=== PATIENT | male | born 1970 | race Caucasian/White ===

== ENCOUNTER 2021-09-06 16:26 | Observation (INO) ==
[2021-09-06 17:13] LABS: Appearance Urine Clear (Clear); Bilirubin Urine Negative (Negative); Blood Urine Negative (Negative); Color Urine Yellow; Glucose Urine UA Negative (Negative); Ketones Urine Trace (Negative); Leukocyte Esterase Urine Negative (Negative); Nitrite Urine Negative (Negative); Protein Urine Negative (Negative); Specific Gravity Urine 1.005 (1.000-1.030); Urobilinogen Urine Negative (Negative); pH Urine 5.5 (4.5-7.5)
[2021-09-06 17:17] LABS: Basophils # (auto) 0.04 K/uL (0-0.2); Basophils % (auto) 0.3 %; Eosinophils # (auto) 0.22 K/uL (0-0.5); Eosinophils % (auto) 1.6 %; Hemoglobin 15.2 g/dL (14.0-18.0); Immature Granulocytes # (auto) 0.03 K/uL (0.00-0.02); Immature Granulocytes % (auto) 0.2 %; Lymphocytes # (auto) 2.41 K/uL (1.2-3.4); Lymphocytes % (auto) 17.5 %; Mean Corpuscular Hemoglobin 32.5 pg (25-34); Mean Corpuscular Hgb Conc 34.5 g/dL (32-36); Mean Platelet Volume 10.3 fL (7.4-10.4); Monocytes # (auto) 1.37 K/uL (0.11-0.59); Monocytes % (auto) 9.9 %; Neutrophils # (auto) 9.74 K/uL (1.4-6.5); Neutrophils % (auto) 70.5 %; Platelet Count 254 K/uL (130-400); RDW Coefficient of Variation 13.2 % (11.5-14.5); RDW Standard Deviation 45.4 fL (36.4-46.3); Red Blood Count 4.68 M/uL (4.7-6.1); White Blood Count 13.81 K/uL (4.8-10.8)
[2021-09-06 17:32] LABS: Potassium 3.6 mmol/L (3.5-5.1)
[2021-09-06 17:33] LABS: Albumin Level 3.9 gm/dl (3.4-5.0); Calcium 10.1 mg/dl (8.5-10.1); Creatinine Clr Calc Pharmacy 103.2 ml/min; Est GFR (African American) 108.5 ml/min; Est GFR (Non-African American) 93.6 ml/min
[2021-09-06 17:35] LABS: Albumin Globulin Ratio 0.9 (0.9-2); Bilirubin,Total 0.4 mg/dl (0.2-1); Globulin 4.2 gm/dl (2.5-4.0); Total Protein 8.1 gm/dl (6.4-8.2)
[2021-09-06] MEDS ORDERED: OPTIRAY 320 100ml IV ONE (19:07)
--- NOTE | 2021-09-06 19:31 | CT Scan Report ---
ABDOMEN AND PELVIS CT WITH IV CONTRAST CT DOSE: 360.25 mGy.cm HISTORY: Left-sided abdominal pain. diverticulitis TECHNIQUE: Multiaxial CT images of the abdomen and pelvis were performed following the use of intrave nous contrast. A dose lowering technique was utilized adhering to the principles of ALARA. COMPARISON STUDY: None. FINDINGS: Focal bowel wall thickening within the mid descending colon with an inflamed diverticulum a nd adjacent pericolonic fat stranding/edema. This likely represents an acute diverticulitis. No perfo ration or abscess identified at this time. Trace pelvic free fluid. This is likely reactive. Moderate well-formed stool within the colon. Normal appendix. The bladder is not well-distended but appears u nremarkable. Borderline dilated gas-filled loops of large and small bowel seen throughout the abdomen . This favors a mild reactive ileus. No evidence for a bowel obstruction. A 9 mm hypodense lesion wit hin the right hepatic dome is technically too small to characterize but favors a cyst. There is also a heterogeneous enhancing 2.5 cm lesion within the periphery the right hepatic lobe on image 99 and a 1 cm heterogeneous enhancing lesion within the right hepatic lobe on image 70. These are indetermina te but favor hemangiomas. The gallbladder, adrenal glands, pancreas, and kidneys enhance normally. No hydronephrosis. Mild bilateral perinephric edema which is likely chronic. The main portal vein is pa tent. 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 Both lumens opacified. This is to the age indeterminate but likely chronic. Subc entimeter retroperitoneal lymph nodes do not meet CT criteria for pathologic involvement. Tiny fat-co ntaining umbilical hernia. A 1.6 cm hypodense lesion within the splenic dome. This favors a small cys t. IMPRESSION: 1. Acute diverticulitis involving the mid descending colon. No perforation or abscess at this time. F ollow-up colonoscopy should be performed once the patient's diverticulitis has resolved to exclude th e less likely possibility of an underlying colonic lesion. 2. There are 2 heterogeneous enhancing lesions within the right hepatic lobe as described above. Thes e are incompletely characterized on this single phase study but favor hemangiomas. These can be laureen cterized with a nonemergent dedicated liver MRI if clinically warranted. 3. 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 Both lumens are opacified. This is age indeterminate but is likely chronic. ACT 112: Negative or not required by law. Electronically signed by: Brice Myers M.D. 09/06/2021 7:30 PM
--- NOTE | 2021-09-06 19:41 | Emergency Department Note ---
History of Present Illness General Chief complaint: Abdominal Pain Stated complaint: DIVERTICULITIS, ABDOMINAL PAIN Time Seen by Provider: 09/06/21 19:29 Source: patient History of Present Illness Provider complaint: Left lower quadrant abdominal pain Onset (ago): day(s) 2 Location: abdomen and left Radiation: non-radiation Pain Consistency: + constant Maximum Pain Intensity: 9 Quality: + dull Relieved By: + none Associated symptoms: no chest pain, no cough, no fever/chills, no na usea/vomiting or no shortness of breath This is a 50-year-old male who presents with abdominal pain starting 2 days ago. He describes it as initially dull but seem to get worse today. He states is in the left lower quadrant. It does not radiate. No modifying factors. He has had some nausea but no vomiting associated with it. He denies any fever, cough, chest pain, shortness of breath, urinary symptoms or diarrhea. He states that he just finished a course of Augmentin for the past 10 days for sinus infection. He does have a prior history of diverticulitis and feels that this is similar. Home Medications Medication Instructions Recorded Confirmed Type amlodipine 5 mg tablet 5 mg PO DAILY 09/06/21 09/06/21 History Allergies Allergy/AdvReac Type Severity Reaction Status Date / Time No Known Allergies Allergy Verified 09/06/21 20:38 Past Med/Surg History Medical History Diverticulitis Social History Smoking Status: Current some day smoker Feels Safe at Home: Yes Review of Systems See HPI for pertinent positives & negatives. and A total of 10 systems reviewed and were otherwise negative Physical Exam Vital Signs Vital Signs - 24 hr 09/06/21 16:39 09/06/21 20:09 Temperature 36.8 C Temperature Source Temporal Artery Scan Pulse Rate 98 H Pulse Rate [Finger] 83 Respiratory Rate 18 20 Respiratory Effort / Characteristics Non-Labored Spontaneous Respiratory Depth Normal Blood Pressure 185/120 H Blood Pressure [Right Arm] 162/114 H Blood Pressure Mean 141 Blood Pressure Mean [Right Arm] 130 Pulse Oximetry 99 98 Oxygen Delivery Method Room Air Room Air Sepsis Recent Fever Within 48 Hours No Sepsis New/Unexplained Change in Mental Status No Sepsis Action Taken by Nursing No Action Required Constitutional: Vital signs reviewed. Eyes: Pupils are equal round. Conjunctiva are noninjected. ENT: Pharynx is clear without erythema or exudate. Mucous membranes are moist. Neck supple without meningeal signs. Respiratory: Clear to auscultation bilaterally. Breath sounds are equal bilaterally. Cardiovascular: Regular rate and rhythm. No rubs or gallops. GI: Soft, nondistended with left lower quadrant tenderness. No guarding. Bowel sounds are present. Musculoskeletal: No peripheral edema. No lower extremity tenderness. Integumentary: No cyanosis. or jaundice. Neurological: The patient is awake and alert. No focal deficits. Psychiatric: Normal affect. Not anxious appearing. Course Administered Medications Discontinued Medications Piperacillin Sod/Tazobactam Sod (Zosyn) 4.5 gm in 120 mls @ 240 mls/hr IV NOW ONE Stop: 09/06/21 20:22 Last Infusion: 09/06/21 20:39 Dose: 0 mls/hr Documented by: [id number] Admin: 09/06/21 20:05 Dose: 240 mls/hr Documented by: [id number] Sodium Chloride (Nss 1000ml) 1,000 mls @ 999 mls/hr IV .Q1H1M ONE Stop: 09/06/21 20:53 Last Admin: 09/06/21 20:01 Dose: 999 mls/hr Documented by: [id number] Ioversol (Optiray 320 100ml) 95 ml IV ONCE ONE Stop: 09/06/21 19:08 Last Admin: 09/06/21 19:07 Dose: 95 ml Documented by: [id number] Morphine Sulfate (Morphine Sulfate 4 Mg/Ml 1 Ml Carp\Vial) 4 mg IV NOW STA Stop: 09/06/21 19:54 Last Admin: 09/06/21 20:06 Dose: 4 mg Documented by: [id number] Ondansetron HCl (Ondansetron Inj 2 Mg/Ml 2 Ml Vial) 4 mg IV NOW STA Stop: 09/06/21 19:54 Last Admin: 09/06/21 20:01 Dose: 4 mg Documented by: [id number] Medical Decision Making Differential Diagnosis Diverticulitis, perforation, abscess, kidney stone, strain Medical Records Attestation: I reviewed the patient's medical records. I did perform a limited focused review of portions of the patient's old chart on the electronic medical record. The patient has had no recent pertinent visits to this hospital. Home Medications Current Medication List: was personally reviewed by me Laboratory Data Attestation: I reviewed the patient's lab results. Result diagrams: 09/06/21 16:52 09/06/21 16:52 Lab Results 09/06/21 09/06/21 09/06/21 Range/Units 16:52 16:52 16:53 WBC 13.81 H (4.8-10.8) K/uL RBC 4.68 L (4.7-6.1) M/uL Hgb 15.2 (14.0-18.0) g/dL Hct 44.0 (42-52) % MCV 94.0 (80-100) fL MCH 32.5 (25-34) pg MCHC 34.5 (32-36) g/dL RDW Std Deviation 45.4 (36.4-46.3) fL RDW Coeff of Snoal 13.2 (11.5-14.5) % Plt Count 254 (130-400) K/uL MPV 10.3 (7.4-10.4) fL Immature Gran % (Auto) 0.2 % Neut % (Auto) 70.5 % Lymph % (Auto) 17.5 % [place] % (Auto) 9.9 % Eos % (Auto) 1.6 % Baso % (Auto) 0.3 % Neut # (Auto) 9.74 H (1.4-6.5) K/uL Lymph # (Auto) 2.41 (1.2-3.4) K/uL [place] # (Auto) 1.37 H (0.11-0.59) K/uL Eos # (Auto) 0.22 (0-0.5) K/uL Baso # (Auto) 0.04 (0-0.2) K/uL Immature Gran # (Auto) 0.03 H (0.00-0.02) K/uL Sodium 141 (136-145) mmol/L Potassium 3.6 (3.5-5.1) mmol/L Chloride 106 (98-107) mmol/L Carbon Dioxide 27 (21-32) mmol/L Anion Gap 8.0 (3-11) BUN 10 (7-18) mg/dl Creatinine 0.95 (0.6-1.4) mg/dl Est Cr Clr Drug Dosing 103.2 ml/min Est GFR ( Amer) 108.5 ml/min Est GFR (Non-Af Amer) 93.6 ml/min BUN/Creatinine Ratio 10.0 (10-20) Glucose 95 (70-99) mg/dl Calcium 10.1 (8.5-10.1) mg/dl Total Bilirubin 0.4 (0.2-1) mg/dl AST 15 (15-37) U/L ALT 27 (12-78) U/L Alkaline Phosphatase 61 (45-117) U/L Total Protein 8.1 (6.4-8.2) gm/dl Albumin 3.9 (3.4-5.0) gm/dl Globulin 4.2 H (2.5-4.0) gm/dl Albumin/Globulin Ratio 0.9 (0.9-2) Lipase 95 (73-393) U/L Urine Color Yellow Urine Appearance Clear (Clear) Urine pH 5.5 (4.5-7.5) Ur Specific [place] 1.005 (1.000-1.030) Urine Protein Negative (Negative) Urine Glucose (UA) Negative (Negative) Urine Ketones Trace H (Negative) Urine Blood Negative (Negative) Urine Nitrite Negative (Negative) Urine Bilirubin Negative (Negative) Urine Urobilinogen Negative (Negative) Ur Leukocyte Esterase Negative (Negative) SARS-CoV-2, RNA, NAAT (NEGATIVE) 09/06/21 Range/Units 20:10 WBC (4.8-10.8) K/uL RBC (4.7-6.1) M/uL Hgb (14.0-18.0) g/dL Hct (42-52) % MCV (80-100) fL MCH (25-34) pg MCHC (32-36) g/dL RDW Std Deviation (36.4-46.3) fL RDW Coeff of Sonal (11.5-14.5) % Plt Count (130-400) K/uL MPV (7.4-10.4) fL Immature Gran % (Auto) % Neut % (Auto) % Lymph % (Auto) % [place] % (Auto) % Eos % (Auto) % Baso % (Auto) % Neut # (Auto) (1.4-6.5) K/uL Lymph # (Auto) (1.2-3.4) K/uL [place] # (Auto) (0.11-0.59) K/uL Eos # (Auto) (0-0.5) K/uL Baso # (Auto) (0-0.2) K/uL Immature Gran # (Auto) (0.00-0.02) K/uL Sodium (136-145) mmol/L Potassium (3.5-5.1) mmol/L Chloride (98-107) mmol/L Carbon Dioxide (21-32) mmol/L Anion Gap (3-11) BUN (7-18) mg/dl Creatinine (0.6-1.4) mg/dl Est Cr Clr Drug Dosing ml/min Est GFR ( Amer) ml/min Est GFR (Non-Af Amer) ml/min BUN/Creatinine Ratio (10-20) Glucose (70-99) mg/dl Calcium (8.5-10.1) mg/dl Total Bilirubin (0.2-1) mg/dl AST (15-37) U/L ALT (12-78) U/L Alkaline Phosphatase (45-117) U/L Total Protein (6.4-8.2) gm/dl Albumin (3.4-5.0) gm/dl Globulin (2.5-4.0) gm/dl Albumin/Globulin Ratio (0.9-2) Lipase (73-393) U/L Urine Color Urine Appearance (Clear) Urine pH (4.5-7.5) Ur Specific [place] (1.000-1.030) Urine Protein (Negative) Urine Glucose (UA) (Negative) Urine Ketones (Negative) Urine Blood (Negative) Urine Nitrite (Negative) Urine Bilirubin (Negative) Urine Urobilinogen (Negative) Ur Leukocyte Esterase (Negative) SARS-CoV-2, RNA, NAAT NEGATIVE (NEGATIVE) Imaging Data Radiologist's Impression: Abdomen/Pelvis CT 09/06/21 18:[address] WITH IV CONTRAST CT DOSE: 360.25 mGy.cm HISTORY: Left-sided abdominal pain. diverticulitis TECHNIQUE: Multiaxial CT images of the abdomen and pelvis were performed following the use of intravenous contrast. A dose lowering technique was utilized adhering to the principles of ALARA. COMPARISON STUDY: None. FINDINGS: Focal bowel wall thickening within the mid descending colon with an inflamed diverticulum and adjacent pericolonic fat stranding/edema. This likely represents an acute diverticulitis. No perforation or abscess identified at this time. Trace pelvic free fluid. This is likely reactive. Moderate well-formed stool within the colon. Normal appendix. The bladder is not well-distended but appears unremarkable. Borderline dilated gas-filled loops of large and small bowel seen throughout the abdomen. This favors a mild reactive ileus. No evidence for a bowel obstruction. A 9 mm hypodense lesion within the right hepatic dome is technically too small to characterize but favors a cyst. There is also a heterogeneous enhancing 2.5 cm lesion within the periphery the right hepatic lobe on image 99 and a 1 cm heterogeneous enhancing lesion within the right hepatic lobe on image 70. These are indeterminate but favor hemangiomas. The gallbladder, adrenal glands, pancreas, and kidneys enhance normally. No hydronephrosis. Mild bilateral perinephric edema which is likely chronic. The main portal vein is patent. 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 Both lumens opacified. This is to the age indeterminate but likely chronic. Subcentimeter retroperitoneal lymph nodes do not meet CT criteria for pathologic involvement. Tiny fat-containing umbilical hernia. A 1.6 cm hypodense lesion within the splenic dome. This favors a small cyst. IMPRESSION: 1. Acute diverticulitis involving the mid descending colon. No perforation or abscess at this time. Follow-up colonoscopy should be performed once the patient's diverticulitis has resolved to exclude the less likely possibility of an underlying colonic lesion. 2. There are 2 heterogeneous enhancing lesions within the right hepatic lobe as described above. These are incompletely characterized on this single phase study but favor hemangiomas. These can be characterized with a nonemergent dedicated liver MRI if clinically warranted. 3. 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 Both lumens are opacified. This is age indeterminate but is likely chronic. ACT 112: Negative or not required by law. Electronically signed by: Brice Myers M.D. 09/06/2021 7:30 PM MDM Narrative I did evaluate the patient as noted above. IV access was established. I did order a urine analysis. There is no evidence of infection or blood.I did order and review the patient's blood work as noted in the electronic medical record. His white count is elevated at 13.8. He is not anemic or thrombocytopenic. Electrolytes, LFTs and lipase are unremarkable. I did order a CT of the abdomen and pelvis. I did review the images myself as well as the radiology report as described above. He does appear to have diverticulitis involving the mid descending colon without perforation or abscess. There are 2 lesions in the liver which appear to be hemangiomas. There is also focal dissection of the proximal celiac artery with fusiform aneurysmal dilatation measuring 1.5 cm. This appears to be chronic. I did discuss the test results with patient. He states he knows about the hemangiomas. He has never heard about the dissection and aneurysm. The patient does not have any upper pain. His pain is localized to the left lower abdomen where his diverticulitis is located. I did recommend inpatient treatment given his outpatient failure with Augmentin. He was agreeable. I did order a Covid test. He was given normal saline, morphine and Zofran and Zosyn IV. I did discuss case with the hospitalist and case assembler. Vascular surgery can be consulted not emergently. Impression & Plan Diverticulitis, Aneurysm artery, celiac, Failure of outpatient treatment, Celiac artery dissection Discharge Plan Visit Data Chief Complaint: Abdominal Pain Stated Complaint: DIVERTICULITIS, ABDOMINAL PAIN ED Provider: Naseem Colindres Discharge Problem: Diverticulitis, Aneurysm artery, celiac, Failure of outpatient treatment, Celiac artery dissection Patient Disposition: Being Evaluated by Hospitalist Discharge Instructions Interventions: ED Discharge Assessment Last Done: 09/06/21 22:02 Forms Stand Alone Forms: My [employer] Prescriptions Prescriptions: No Action amlodipine 5 mg tablet 5 mg PO DAILY RF: 0 Referrals Referrals: PCP,NO [Primary Care Provider] -
[2021-09-06] MEDS ORDERED: PIPERACILL/TAZOBAC CONSULT ACTIVE PRN (19:53)
[2021-09-06] MEDS ORDERED: ONDANSETRON INJ 2 MG/ML 2 ML VIAL IV STA (19:53)
[2021-09-06] MEDS ORDERED: MoRPHine SULFATE 4 MG/ML 1 ML CARP\\VIAL IV STA (19:53)
[2021-09-06] MEDS ORDERED: PIPERACILLIN/TAZOBACTAM 4.5 GM/120 ML BAG IV ONE (19:53)
[2021-09-06] MEDS ORDERED: SODIUM CHLORIDE 0.9% 1000ML 1,000 ML IV ONE (19:53)
[2021-09-06] MEDS ORDERED: MoRPHine SULFATE 4 MG/ML 1 ML CARP\\VIAL IV PRN (22:28)
--- NOTE | 2021-09-06 23:16 | History and Physical Report ---
DATE OF ADMISSION: 09/06/2021. CHIEF COMPLAINT: Abdominal pain. HISTORY OF PRESENT ILLNESS: A 50-year-old male with past medical history significant for hypertension, presents with abdominal pain since last 2 to 3 days. It was mild initially, but as he was coming from the [place] area today after a couple of hours pain became severe, and he came to the ER. He is on Augmentin for sinus infection for the last 10 days. Today is the last dose. He has l history of diverticulitis a couple of times, in the last 3 years, last episode was in May. He had a colonoscopy last year and it was fine. Currently, no recent diarrhea or constipation, no blood in the stools, no nausea, no vomiting, no fevers, no headache, no blurred vision, no earache, no runny nose, no sore throat or cough. Appetite is okay. No difficulty swallowing. No chest pain, no shortness of breath, no rash, no swelling in the legs. ALLERGIES: No known drug allergies. PAST MEDICAL HISTORY: As mentioned above. PAST SURGICAL HISTORY: Hiatal hernia surgeries as a child. MEDICATIONS: Amlodipine 5 mg p.o. daily. FAMILY HISTORY: Father had cancer, kidney stones, hypertension. Mother has hypertension, hypothyroidism. SOCIAL HISTORY: Smokes close to 1 pack a day for last many years. Alcohol, drinks 2-3 drinks every day. Denies any drug use. REVIEW OF SYSTEMS: As per HPI. Rest of review of systems is negative. PHYSICAL EXAMINATION: GENERAL: The patient is of moderate build, not in acute distress. VITAL SIGNS: Temperature 36.8, pulse 83, respiratory rate 20, blood pressure 162/114, oxygen 93% on room air. HEENT: Pupils equal, round and reactive to light. Oral mucosa moist. NECK: No JVD, no neck masses. CARDIOVASCULAR: S1 and S2 heard. Regular rate and rhythm. No murmur, no gallop. RESPIRATORY: Normal AP diameter. No accessory muscle use. No wheezing, no crackles. ABDOMEN: Soft, bowel sounds present. Mild tenderness in the left lower quadrant. No guarding, no rigidity, no distention. CENTRAL NERVOUS SYSTEM: Cranial nerves II-XII are grossly intact, nonfocal. EXTREMITIES: No edema, no erythema. LABORATORY DATA: WBC 13.8, hemoglobin 15.2, hematocrit 44, platelets 254. Sodium 141, potassium 3.6, chloride 106, bicarb 27, BUN 10, creatinine 0.9, serum glucose 95, calcium 10.1, total bilirubin 0.4, AST 15, ALT 27, alkaline phosphatase 61, lipase 95. Urinalysis: Trace ketones. SARS-CoV-2 RNA negative. IMAGING DATA: CT of abdomen and pelvis acute diverticulitis involving the mid descending colon. No perforation or abscess at this time. Followup colonoscopy should be performed once the patient's diverticulitis resolved. It is less likely possibility of an underlying colonic lesion. Two heterogenous enhancing lesions in the right hepatic lobe as described above probabaly hemangiomas, focal dissection within the proximal celiac artery with fusiform aneurysmal dilatation measuring 1.4 cm. Both lumens were opacified, likely chronic. ASSESSMENT AND PLAN: This is a 50-year-old male who presents with recurrent diverticulitis. 1. Recurrent diverticulitis. This is third epsiode in last 3 last years, last was in the May. He just was on Augmentin for sinusitis, today was the last dose of 10-day course. Abdominal pain started 2-[address] scan showing diverticulitis .ER started on IV Zosyn, which will be continued. We will keep him n.p.o. except meds, IV fluids, IV antiemetics, IV pain medication p.r.n. Consult surgery in the a.m. 2. Tobacco abuse. Nicotine patch. 3. Hypertension. Continue home amlodipine. We will monitor blood pressure. 4. Alcoholism. The patient states he drinks 2-3 drinks every day, but denies any withdrawal symptoms from not taking it. We will watch for any withdrawal symptoms. We will place him on IV Ativan p.r.n. 5. 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 It seems chronic. Needs to follow up with vascular surgery. We will follow the lactic acid in the a.m. 6. Deep venous thrombosis prophylaxis. Lovenox. DISPOSITION: Closely monitor in the medical floor. Expect to discharge home and follow up with family doctor. Job ID: [id number] [facility]
[2021-09-06] MEDS: NICOTINE 21 MG/24 HR TDSY TD SCH (23:46)
[2021-09-06] MEDS: D5W AND NSS 1,000 ML IV SCH (23:47)
[2021-09-07] MEDS: PIPERACILLIN/TAZOBACTAM 3.375 GM in DEXTROSE 5% 100 ML IV SCH ×3 (00:08→17:01)
--- NOTE | 2021-09-07 05:25 | Surgery Consultation ---
Date of Consultation September 07, 2021 Assessment & Plan (1) Diverticulitis: Patient has been admitted by the hospital service we recommend proceeding as follows: Provide analgesics Provide antiemetics Implement bowel rest Continue antibiotics in the form of Zosyn Provide hydration with intravenous fluids I discussed with the patient the above treatment plan. Told him it would be preferable to treat him in a conservative manner as outlined above rather than pursuing surgical intervention as surgery in the setting of acute diverticulitis may require a colostomy. Once patient has clinical improvement noted we will plan on slowly advancing his diet. We will continue following while patient is hospitalized Supervising Physician Co-Signing Physician Notes Patient is passing some flatus not had a bowel movement although he states he had a bowel movement yesterday prior to Developing abdominal pain We will start him on clear liquids today his abdomen is completely benign minimal tenderness left lower quadrant Dr. Benjie Melgar covering the weekend History of Present Illness Reason for Consultation: Diverticulitis Attending Physician: Alton Salas MD History of Present Illness This 50-year-old male who presents to the emergency department secondary abdominal pain. Patient notes that the pain began 2 to 3 days ago. He notes that the pain does not radiate and is located primarily left lower quadrant of his abdomen. He denies any fevers, shakes, chills. He denies any nausea vomiting. Patient notes that the pain got progressively worse so he presented the emergency department. He notes that he has had an episode of diverticulitis most recently in May 2020. Patient says he was treated successfully in a conservative manner. He said once he recovered from that he did have a colonoscopy and he did not note any concerning pathology. Since admission the patient has had labs and imaging which I independently reviewed. He did undergo CT scan of the abdomen and pelvis that showed findings consistent with acute diverticulitis involving the mid descending colon. There is no evidence of perforation or abscess noted. Labs include a CBC her white blood cell count is 13.8. Hemoglobin, hematocrit, and platelet count were all within normal range. Chemistry profile showed sodium, potassium, BUN, and creatinine were all within normal range. There is no significant elevation of LFTs or lipase. Urinalysis was not indicative of infection and a Covid test was performed was noted to be negative. At the time of my interview the patient was resting comfortably in bed he was in no distress. He has noted some clinical improvement since admission to the hospital. Allergies Allergy/AdvReac Type Severity Reaction Status Date / Time No Known Allergies Allergy Verified 09/06/21 20:38 Home Medications Medication Instructions Recorded Confirmed Type amlodipine 5 mg tablet 5 mg PO DAILY 09/06/21 09/06/21 History Patient History Medical History Diverticulitis Social History Smoking Status: Current every day smoker Cigarettes Per Day: 15-20; Do You Dip or Chew Tobacco: No; Hx Alcohol Use: Yes Hx Substance Use: No Preferred Language: Yakut Communication Ability: Effective [employer] Picker Required: No Beliefs That Will Affect Care: None marital status: Single Current Living Situation: Alone Feels Safe at Home: Yes Safety Concerns: Feels Safe At This Time Assistive Devices: None Review of Systems Constitutional: no fever and no chills Eyes: no diplopia Ear, Nose, Mouth, Throat: no ear pain Respiratory: no cough and no dyspnea Cardiovascular: no chest pain Gastrointestinal: + abdominal pain; no nausea and no vomiting Genitourinary: no dysuria Musculoskeletal: no back pain Integumentary: no rash Neurologic: no localized weakness Physical Exam Constitutional: well developed and well nourished; no acute distress Eyes: no conjunctival abnormality ENMT: Ears: no hearing impairment Neck: trachea midline Respiratory: normal respiratory effort; no respiratory distress and no labored breathing Cardiovascular: Rate/Rhythm: regular rate and regular rhythm Gastrointestinal (Abdomen): Abdomen is soft and nondistended. There is a small amount of pain noted with palpation of the left lower quadrant. There is no rebound tenderness or guarding. Musculoskeletal: No calf tenderness Skin: no rashes Neurologic: moves all extremities Psychiatric: A+Ox3, euthymic affect Results & Data ([facility]) Vital Signs (Past 12 Hours) Vital Signs Temp Pulse Resp BP Pulse Ox 09/06/21 22:37 37.1 C 73 18 153/99 H 98 09/06/21 20:09 83 20 162/114 H 98 PG Care Time/CCT Total # of Minutes Spent Total Time Spent with Patient: Total time spent is greater than 50% in coordination of care (as documented) at patient's floor/unit and/or counseling patient: Coding Level of Care Code 91999 Inpt Consult Level 5 Diagnoses Diverticulitis K57.92
[2021-09-07 07:32] LABS: Basophils # (auto) 0.05 K/uL (0-0.2); Basophils % (auto) 0.5 %; Eosinophils # (auto) 0.32 K/uL (0-0.5); Eosinophils % (auto) 3.2 %; Hematocrit (blood only) 39.1 % (42-52); Hemoglobin 13.4 g/dL (14.0-18.0); Immature Granulocytes # (auto) 0.01 K/uL (0.00-0.02); Immature Granulocytes % (auto) 0.1 %; Lymphocytes # (auto) 2.51 K/uL (1.2-3.4); Lymphocytes % (auto) 25.3 %; Mean Corpuscular Hemoglobin 32.3 pg (25-34); Mean Corpuscular Hgb Conc 34.3 g/dL (32-36); Mean Corpuscular Volume 94.2 fL (80-100); Mean Platelet Volume 9.7 fL (7.4-10.4); Monocytes # (auto) 1.38 K/uL (0.11-0.59); Monocytes % (auto) 13.9 %; Neutrophils # (auto) 5.65 K/uL (1.4-6.5); Platelet Count 207 K/uL (130-400); RDW Coefficient of Variation 13.4 % (11.5-14.5); RDW Standard Deviation 46.4 fL (36.4-46.3); Red Blood Count 4.15 M/uL (4.7-6.1); White Blood Count 9.92 K/uL (4.8-10.8)
[2021-09-07 08:03] LABS: BUN Creatinine Ratio 8.5 (10-20); Calcium 8.7 mg/dl (8.5-10.1); Creatinine Clr Calc Pharmacy 101.1 ml/min; Est GFR (African American) 105.8 ml/min; Est GFR (Non-African American) 91.3 ml/min; Magnesium 2.2 mg/dl (1.8-2.4); Potassium 3.7 mmol/L (3.5-5.1)
[2021-09-07] MEDS: D5W AND NSS 1,000 ML IV SCH ×2 (08:30→17:00)
[2021-09-07] MEDS: amLODIPine BESYLATE 5 MG TAB PO SCH (08:32)
[2021-09-07] MEDS: NICOTINE 21 MG/24 HR TDSY TD SCH (08:33)
[2021-09-07] MEDS: ENOXAPARIN INJ 40 MG/0.4 ML SYR SQ SCH (08:33)
[2021-09-07] MEDS ORDERED: LORazepam 0.5 MG/1 ML VIAL IV PRN (09:12)
--- NOTE | 2021-09-07 19:57 | Hospitalist Progress Note ---
Date of Service September 07, 2021 delayed entry date of service noted above Assessment & Plan (1) Diverticulitis: Plan: afebrile leukocytosis improved pain slowly improving tolerating clears continue IV Zosyn Gen Surg on board Hypertension continue Amlodipine Smoker Nicotine patch given Alcohol use no signs of withdrawal Abnormal CT scan findings 1. Acute diverticulitis involving the mid descending colon. No perforation or abscess at this time. Follow-up colonoscopy should be performed once the patient's diverticulitis has resolved to exclude the less likely possibility of an underlying colonic lesion. 2. There are 2 heterogeneous enhancing lesions within the right hepatic lobe as described above. These are incompletely characterized on this single phase study but favor hemangiomas. These can be characterized with a nonemergent dedicated liver MRI if clinically warranted. 3. 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 Both lumens are opacified. This is age indeterminate but is likely chronic. -- needs outpatient ff up for Liver Lesions outpatient MRI recommended -- will need to follow up with Vascular Surgeon no smoking/alcohol plan of care discussed with patient all questions answered he is understanding, agreeable, comfortable with the plan of care Admission and Anticipated Discharge Date Admission Date: September 06, 2021 Subjective ff up for acute diverticulitis, etc seen resting in bed, not in distress, comfortable states LLQ pain is improved, about 4/10 tolerating clear liquids well no BM yet (+) flatus no fever/chills no chest pain, dyspnea, palpitations, dizziness no other symptoms Review of Systems Review of Systems: all noted and negative except for above Physical Exam Physical Exam: General- oriented x 3, not in distress, speaks in sentences with no effort or accessory muscle use Eyes- anicteric Neck- no JVD Lungs- clear breath sounds bilaterally, no rales/wheezes Heart- normal rate, regular rhythm; no murmurs Abdomen- normal bowel sounds, nondistended, soft, (+) moderate tenderness on the LLQ Extremities- no pretibial edema, no calf tenderness Neuro- alert, oriented x 3; no gross focal neurologic deficits Skin- warm & dry Results & Data Results & Data ([facility]) Vital Signs (Past 12 Hours) Vital Signs Temp Pulse Resp BP Pulse Ox 09/07/21 15:36 36.7 C 86 16 145/94 H 97 09/07/21 08:13 36.8 C 79 14 130/82 97 all noted and reviewed including below
[2021-09-07] MEDS: ACETAMINOPHEN 500 MG TAB PO PRN (20:41)
[2021-09-08] MEDS: D5W AND NSS 1,000 ML IV SCH ×3 (00:23→15:54)
[2021-09-08] MEDS: PIPERACILLIN/TAZOBACTAM 3.375 GM in DEXTROSE 5% 100 ML IV SCH ×3 (00:23→16:28)
[2021-09-08] MEDS: ACETAMINOPHEN 500 MG TAB PO PRN (03:32)
[2021-09-08] MEDS: amLODIPine BESYLATE 5 MG TAB PO SCH (07:38)
[2021-09-08] MEDS: ENOXAPARIN INJ 40 MG/0.4 ML SYR SQ SCH (07:39)
[2021-09-08] MEDS: NICOTINE 21 MG/24 HR TDSY TD SCH (07:39)
[2021-09-08 09:57] LABS: Basophils # (auto) 0.03 K/uL (0-0.2); Basophils % (auto) 0.4 %; Eosinophils # (auto) 0.32 K/uL (0-0.5); Hematocrit (blood only) 39.7 % (42-52); Hemoglobin 13.5 g/dL (14.0-18.0); Immature Granulocytes # (auto) 0.01 K/uL (0.00-0.02); Immature Granulocytes % (auto) 0.1 %; Lymphocytes # (auto) 2.37 K/uL (1.2-3.4); Lymphocytes % (auto) 29.3 %; Mean Corpuscular Hemoglobin 32.5 pg (25-34); Mean Corpuscular Volume 95.7 fL (80-100); Mean Platelet Volume 10.1 fL (7.4-10.4); Monocytes # (auto) 0.63 K/uL (0.11-0.59); Monocytes % (auto) 7.8 %; Neutrophils # (auto) 4.74 K/uL (1.4-6.5); Neutrophils % (auto) 58.4 %; Platelet Count 212 K/uL (130-400); RDW Coefficient of Variation 13.3 % (11.5-14.5); RDW Standard Deviation 46.1 fL (36.4-46.3); Red Blood Count 4.15 M/uL (4.7-6.1)
[2021-09-08 10:20] LABS: BUN Creatinine Ratio 5.1 (10-20); Creatinine Clr Calc Pharmacy 95.2 ml/min; Est GFR (African American) 98.4 ml/min; Est GFR (Non-African American) 84.9 ml/min; Potassium 3.5 mmol/L (3.5-5.1)
[2021-09-08 10:23] LABS: Albumin Globulin Ratio 0.8 (0.9-2); Bilirubin,Total 0.3 mg/dl (0.2-1); Globulin 3.8 gm/dl (2.5-4.0); Total Protein 6.8 gm/dl (6.4-8.2)
--- NOTE | 2021-09-08 10:46 | Surgery Progress Note ---
Date of Service September 08, 2021 Assessment & Plan (1) Diverticulitis: Plan: Clinically doing much better. We will advance his diet. If he tolerates diet he could be discharged on oral antibiotics later today or tomorrow. No indication for surgical intervention at this time. He has a surgeon from his hometown who he should follow up with in the next 2 to 3 weeks. We will sign off. Call if any questions or concerns. Admission and Anticipated Discharge Date Admission Date: September 06, 2021 Subjective Patient seen. He is feeling much better. Minimal discomfort at this point. Physical Exam Constitutional: WD/WN, vitals as above no acute distress and not ill appearing Eyes: PERRL, conjunctivae normal, anicteric sclerae EOM intact bilaterally ENMT: external ear and nose normal, oropharynx normal Ears: no hearing impairment Neck: trachea midline, no thyromegaly Respiratory: normal respiratory effort; no respiratory distress and does not use accessory muscles Cardiovascular: Rate/Rhythm: regular rate and regular rhythm Gastrointestinal (Abdomen): Soft. Very mild left lower quadrant tenderness. No guarding. Skin: no rashes, warm and dry Psychiatric: Orientation: alert, oriented x 3 and cooperative Results & Data ([facility]) Vital Signs (Past 12 Hours) Vital Signs Temp Pulse Resp BP Pulse Ox 09/08/21 09:00 36.6 C 72 16 126/94 97 PG Care Time/CCT Total # of Minutes Spent Total Time Spent with Patient: Total time spent is greater than 50% in coordination of care (as documented) at patient's floor/unit and/or counseling patient: Coding Level of Care Code 88432 Subseq Hosp Care Lvl 3 Diagnoses Diverticulitis K57.92
--- NOTE | 2021-09-08 16:09 | Hospitalist Progress Note ---
Date of Service September 08, 2021 Assessment & Plan (1) Diverticulitis: Plan: Acute Diverticulitis, Recurrent CT abd/pelvis: Acute diverticulitis involving the mid descending colon. No perforation or abscess at this time. Follow-up colonoscopy should be performed once the patient's diverticulitis has resolved to exclude the less likely possibility of an underlying colonic lesion. abdominal pain mostly resolved remains afebrile leukocytosis resolved tolerating full liquid, advance to soft diet given 2 days of IV Zosyn Gen Surgery consulted- recommended medical management discharge plan: 12 more days of Ciprofloxacin and Flagyl to complete 14 day course of antibiotic ff up with PCP in 1 week ff up with General Surgeon as well Colonoscopy in [address] scan findings There are 2 heterogeneous enhancing lesions within the right hepatic lobe as described above. These are incompletely characterized on this single phase study but favor hemangiomas. These can be characterized with a nonemergent dedicated liver MRI if clinically warranted. 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 Both lumens are opacified. This is age indeterminate but is likely chronic. 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 smoking cessation Hypertension continue Amlodipine Smoker Alcohol use no signs of withdrawal Nicotine patch given advised cessation Discharge to home ff up with PCP in 1 week plan of care discussed with patient all questions answered he is understanding, agreeable, comfortable with the plan of care Admission and Anticipated Discharge Date Admission Date: September 06, 2021 Subjective ff up for acute diverticulitis, etc seen resting in bed, sitting up, comfortable states he feels better overall LLQ mostly resolved tolerating full liquid diet well (+) BM, no bleeding no fever/chills no chest pain, dyspnea, palpitations, dizziness no other symptoms states he is ready and would like to be discharged Review of Systems Review of Systems: all noted and negative except for above Physical Exam Physical Exam: General- oriented x 3, not in distress, speaks in sentences with no effort or accessory muscle use Eyes- anicteric Neck- no JVD Lungs- clear breath sounds , no crackles/wheezing BL Heart- normal rate, regular rhythm; no murmurs Abdomen- normal bowel sounds, nondistended, soft, no tenderness Extremities- no pretibial edema, no calf tenderness Neuro- alert, oriented x 3; no gross focal neurologic deficits Skin- warm & dry Results & Data Results & Data ([facility]) Vital Signs (Past 12 Hours) Vital Signs Temp Pulse Resp BP Pulse Ox 09/08/21 09:00 36.6 C 72 16 126/94 97 all noted and reviewed including below
--- NOTE | 2021-09-08 17:22 | Electrocardiogram Report ---
Test Reason : Blood Pressure : / mmHG Vent. Rate : 076 BPM Atrial Rate : 076 BPM P-R Int : 136 ms QRS Dur : 098 ms QT Int : 374 ms P-R-T Axes : 018 045 028 degrees QTc Int : 420 ms Normal sinus rhythm No previous ECGs available Confirmed by Moise Rasmussen ([id number]) on 09/08/2021 5:22:03 PM Referred By: REFERRED SELF Confirmed By:Benjamin Rasmussen
[2021-09-08] MEDS ORDERED: metroNIDAZOLE 500 MG TAB PO SCH (21:00)
[2021-09-08] MEDS ORDERED: CIPROFLOXACIN 500 MG TAB PO SCH (21:00)
== END 2021-09-08 19:15 | disposition home or self-care (01) ==
LOC: ED 16:26 → 3N 20:47 → INTOOBSV 20:47 → 3N 22:02
DX: Z20.822 Contact with and (suspected) exposure to COVID-19; Z79.899 Other long term (current) drug therapy; F10.20 Alcohol dependence, uncomplicated; F17.210 Nicotine dependence, cigarettes, uncomplicated; I10 Essential (primary) hypertension; K57.32 Diverticulitis of large intestine without perforation or abscess without bleeding